=== PATIENT | male | born 2005 | race Caucasian/White ===

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

== ENCOUNTER 2024-06-21 11:04 | Emergency (ER) | payer MEDICAID, SELFPAY ==
[2024-06-21 11:12] VITALS: BP 121/72; PULSE 74; RESP 20; TEMP 36.4; O2SAT 98
[2024-06-21 11:15] VITALS: BP 121/72; PULSE 74; RESP 20; TEMP 36.4; O2SAT 98
--- NOTE | 2024-06-21 11:15 | RT.EKG_ITS ---
APPROVED REPORT Exam: Resting ECG Reason for Exam: dizziness episodes Patient Location: E HR:69 bpm ECG Measurements Heart Rate 69 AXIS TX 131 P 20 QRSd 98 QRS 57 QT 363 T 27 QTc 389 Conclusion Sinus rhythm...normal P axis, V-rate 60- 99 No Occlusion AL
--- NOTE | 2024-06-21 11:33 | ED.GENADUL_ITS ---
Discharge Plan Disposition Patient Disposition: Home Condition: Good Discharge Details Clinical Impression: Chronic intermittent abdominal pain, Dizziness Primary Care Provider: Marylin Carballo ED Provider: Sofya Marroquin Home Meds and New Rx's Prescriptions: No Action No Known Home Meds Discharge Instructions Additional Instructions: Please call the primary care office in [place] to schedule an appointment for further evaluation of your abdominal pain and dizziness episodes. Referral to outpatient specialists may be indicated. Stay well hydrated and eat regular meals throughout the day. Your workup today was reassuring. Return to emergency care if you develop new severely worsening abdominal pain, are unable to hold down foods or fluids, have episodes of passing out, experience new vision changes/confusion, or if you are very worried and need to be rechecked again immediately. HPI General Date/Time Provider Initiated Documentation: 06/21/24 11:06 . HPI Narrative: Emre is a 19 year old male who presents to the ED for evaluation of intermittent sharp LUQ x couple years (since HS) and episodes of intermittent episodes of dizziness ongoing for 3+years. Also reports diarrhea 3-4 times daily, no blood in stool. Abd pain is described as a sharp on-and-off pain in the LUQ that occurs mostly in AM, sometimes at night. No identified aggravating/alleviating factors. Dizziness episodes last only a few seconds, says it feels like he is going to pass out, often accompanied by darkened vision and occasional palpitations; no other associated sx. Denies associated fever/chills, headache, vision changes, chest pains, nausea/vomiting, blood in stool, change in urine output, unusual weight loss. Denies significant PMH. Does not have a PCP, is in process of establishing care at [place]. Denies FMH of celiac disease, crohns, or other known digestive disorders. Daily ETOH use (1 drink, more on weekends), occasional vaping (tobacco), denies marijuana use. Physical exam reassuring. Emre is alert and oriented, in no acute distress. MMM. manager utilization II-XII intact, 5/5 muscle strength to upper and lower extremities, normal Mat, heel-toe walk, Romberg, [id number]. Normal heart sounds. Easy work of breathing, lung sounds clear bilaterally. Abdomen is soft, nondistended, nontender to palpation with normoactive BS. D/dx includes but is not limited to: IBS, IBD, cardiac arrhythmia, electrolyte imbalance, kidney or liver dysfunction, thyroid dysfunction, psychogenic dizziness, dehydration, hypoglycemia. No red flags concerning for acute abdominal process or intracranial pathology requiring emergent diagnostic imaging. I independently interpreted the following tests: EKG reassuring, normal sinus rhythm rate 69, no changes c/w acute ischemia or Brugada syndrome. CBC, CMP, TSH all reassuring. Overall workup today reassuring. Unclear etiology of abdominal discomfort and dizziness episodes, no red flags indicating need for further emergency dept diagnostics at this time in well appearing patient. Recommend further evaluation outpatient with PCP. Reviewed discharge instructions with Emre, including red flags indicating need for return to emergency care and importance of f/u with primary care. He voices agreement with plan of care Related Data Home Medications ?Medication ?Instructions ?Recorded ?Confirmed Unknown [No Known Home Meds] 09/24/22 06/21/24 Allergies Allergy/AdvReac Type Severity Reaction Status Date / Time No Known Allergies Allergy Verified 06/21/24 11:17 General Stated Complaint: Abd Prob ANY: 3 Review of Systems Narrative: see HPI Exam Const General: cooperative, healthy appearing, comfortable, no acute distress and well developed Nutritional Appearance: average body habitus and well nourished Orientation: alert and oriented x3 HENMT Head: normal to inspection Ears: hearing grossly normal bilaterally Face and sinus: normal facial exam Mouth: oral mucosae normal, lip normal, tongue normal, oropharynx normal and moist mucous membranes Eyes Pupils: PERRL EOM: EOM intact bilaterally Resp Effort & Inspection: normal respiratory effort and able to speak in complete sentences Auscultation: clear to auscultation bilaterally Cardio Rate: regular rate Rhythm: regular rhythm GI Inspection: normal to inspection and non-distended Palpation: soft, not firm, no guarding, not rigid and nontender Auscultation: normal bowel sounds Skin General skin exam: no rashes or lesions noted Course Vital Signs Vital signs: Vital Signs Temperature 36.4 C 06/21/24 11:12 Pulse 74 06/21/24 11:12 Respiratory Rate 20 06/21/24 11:12 Blood Pressure 121/72 06/21/24 11:12 Pulse Oximetry 98 06/21/24 11:12 Temperature 36.4 C 06/21/24 11:15 Pulse 74 06/21/24 11:15 Respiratory Rate 20 06/21/24 11:15 Blood Pressure 121/72 06/21/24 11:15 Blood Pressure Position Sitting 06/21/24 11:15 Pulse Oximetry 98 06/21/24 11:15 Oxygen Delivery Method Room Air 06/21/24 11:15 Oxygen Flow Rate 0 06/21/24 11:15 Medical Decision Making Quality:SDOH Health Related Social Needs: No Data to Display PFSH All Active Problems (Updated 06/21/24 @ 12:57 by Sofya Catalan) Dizziness (Acute) Chronic intermittent abdominal pain (Acute) Impacted cerumen of both ears (Acute) Tonsillar hypertrophy (Acute) Excessive cerumen in both ear canals (Acute) Right otitis media (Acute) Otitis externa of both ears (Acute) Left wrist pain (Acute) Acute pain of right knee (Acute) Iliotibial band tendonitis (Acute) Contusion of foot (Acute) Back pain (Acute) Neurocardiogenic syncope (Acute) Medical History No significant past medical history Surgical History No significant past surgical history Family History Mother No problems noted. Father No problems noted. Brother Asthma Other Alcohol abuse MGF Essential hypertension mat great GM Personal history of malignant neoplasm mat great GM-leukemia Hyperlipidemia MGF Social History Smoking/Tobacco Use Status: Current every day Tobacco Type: e-cigarettes and smokeless tobacco Second Hand Exposure: No Smoking risk assessment performed?: Yes Alcohol Intake: current Alcohol Intake frequency: a few times a week Alcohol type: beer and hard liquor Drug use: Occasionally Substance use type: does not use Details: denies current use Adopted: No Foster care: No Housing: house Education Level: high school Details: 9th grade, [employer] Pets and animals: Yes (1 dog) Pets and animals: dog(s) Current gender identity: male What type of physical activity do you participate in: other Details: Soccer Seatbelt use: always Helmet use: Yes Helmet use: always Firearms in home: Yes Firearms unloaded and locked: Yes Do you feel safe at home: Yes Do you feel safe in your relationship?: Yes PAWSS Have you Been Recently Intoxicated or Drunk Within the Last 30 days?: No Have you Ever Experienced Previous Episodes of Alcohol Withdrawal?: No Have you ever Experienced Withdrawal Seizures?: No Have you ever Experienced Delirium Tremens(DT)s?: No Have you ever undergone Alcohol Rehabilitation Treatment (i.e, inpt ot outpatient treatment programs)?: No Have you ever Experienced Blackouts?: No Have you ever Combined Alcohol with other Downers within the last 90 days?: No Have you ever Combined Alcohol with any other Substance of Abuse during the last 90 days?: No Positive Blood Alcohol level on Presentation? [PCS.BAL]: No Evidence of Increased Autonomic Activity (i.e. HR>120, tremor, sweating, agitation, nausea)?: No Result: 0
[2024-06-21 11:53] LABS: Abs Immature Grans 0.01 10^3/uL (0.0-0.06); Absolute Basophil Count 0.04 10^3/uL (0.0-0.2); Absolute Eosinophil Count 0.16 10^3/uL (0.0-0.7); Absolute Lymphocyte Count 1.68 10^3/uL (1.2-3.4); Absolute Monocyte Count 0.42 10^3/uL (0.1-0.8); Basophils % 0.7 %; Eosinophils % 2.9 %; HCT 44.7 % (40.0-50.0); HGB 14.9 g/dL (13.5-17.5); Immature Grans % 0.2 %; Lymphocytes % 29.9 %; MCH 28.1 pg (27.0-33.0); MCHC 33.3 % (32.0-36.0); MCV 84 fL (80-95); MPV 10.5 fL (8.0-11.0); Monocytes % 7.5 %; Neutrophils % 58.8 %; Platelet Count 309 10^3/uL (130-400); RBC 5.31 10^6/uL (4.36-5.78); RDW 12.7 % (11.8-14.1); RDW-SD 38.8 fL; WBC 5.61 10^3/uL (4.4-10.8)
[2024-06-21 12:10] LABS: Lab Add On Test DONE
[2024-06-21 12:17] LABS: ALT 30 U/L (16-63); AST 20 U/L (15-37); Albumin 4.5 g/dL (3.4-5.0); Alkaline Phosphatase 94 U/L (46-116); Anion Gap 7.4 mmol/L (3-11); BUN 9 mg/dL (7-18); Bilirubin, Total 0.8 mg/dL (0.2-1.0); CO2 29.6 mmol/L (21.0-32.0); CREATININE 0.9 mg/dL (0.70-1.30); Calcium 9.5 mg/dL (8.5-10.1); Chloride 103 mmol/L (98-107); Estimated GFR 125.39 (mL/min/1.73m2); Glucose 97 mg/dL (74-106); Lipase 26 U/L (<78); Potassium 4.3 mmol/L (3.5-5.1); Sodium 140 mmol/L (136-145)
[2024-06-21 12:28] LABS: TSH (W/Ref FT4) 0.75 uIU/mL (0.36-3.74)
[2024-06-21 13:10] LABS: Bilirubin Negative (Negative); Blood Negative (Negative); Clarity Clear (Clear); Glucose Negative (Negative); Ketones Negative (Negative); Leukocyte Esterase Negative (Negative); Nitrite Negative (Negative); Urobilinogen 0.2 mg/dL (Up to 0.2)
[2024-06-21 13:46] VITALS: BP 120/64; PULSE 66; RESP 16; TEMP 36.9; O2SAT 100
== END 2024-06-21 13:47 | disposition home or self-care (01) ==
PROVIDERS: Emergency Provider Nurse Practitioner Family; PCP Nurse Practitioner Family
DX: R10.12 Left upper quadrant pain; R42 Dizziness and giddiness
CPT/HCPCS: 36415; 80053; 83690; 93005; 99283; 81003; 84443; 85025; 93010

== ENCOUNTER 2024-08-04 10:10 | Emergency (ER) | payer MEDICAID, SELFPAY ==
--- NOTE | 2024-08-04 10:00 | RT.EKG_ITS ---
APPROVED REPORT Exam: Resting ECG Reason for Exam: Ector, NATALIA Patient Location: E HR:78 bpm ECG Measurements Heart Rate 78 AXIS MO 137 P 73 QRSd 105 QRS 68 QT 367 T 23 QTc 418 Conclusion Sinus rhythm...normal P axis, V-rate 60- 99 Sinus Rhythm. No change from prior 06/21/24. WD
[2024-08-04 10:13] VITALS: BP 112/72; PULSE 80; RESP 18; TEMP 36.9; O2SAT 98
[2024-08-04 11:01] VITALS: BP 112/72; PULSE 71; RESP 22; TEMP 36.7; O2SAT 98
--- NOTE | 2024-08-04 11:52 | W.ED.GENAD ---
Discharge Plan Disposition Patient Disposition: Home Condition: Good Discharge Details Clinical Impression: Intermittent chest pain Primary Care Provider: Marylin Carballo ED Provider: Rosalina Aparicio Home Meds and New Rx's Prescriptions: No Action No Known Home Meds Discharge Instructions Instructions: Chest Pain, Adult ED Additional Instructions: As we discussed your EKG and chest x-ray are reassuring. Your exam is not suggestive of emergent pathology. As the pain does seem to get worse with twisting this could be musculoskeletal. Please continue to monitor your symptoms and try to write these down so you are able to get a better idea of what is causing the pain to come on or migrate. Encourage hydration. Tylenol or ibuprofen as needed for discomfort. If your pain becomes more persistent or you have increased shortness of breath please seek care emergently once again. Otherwise, I have asked our care management team to assist getting you follow-up with primary care in the next 1 to 2 weeks. It does look like you have primary care with [facility], you are welcome to follow up with them as well. Referrals: Marylin Carballo, INFORMATION SYSTEMS ANALYST [Primary Care Provider] - HPI General Date/Time Provider Initiated Documentation: 08/04/24 10:31. Limitations to Documentation: no limitations. Information obtained by: patient and RN notes reviewed. HPI Narrative: HISTORY OF PRESENT ILLNESS The patient is a 19-year-old male presenting with intermittent, localized chest pain for several weeks. The pain is migratory, affecting the lower right side, occasionally higher, and primarily lateral. It lasts about one minute, intensifies during relaxation, and occurs randomly at home and work, 2-3 times daily. He reports difficulty in deep breathing during episode today prompting him to come in, no lightheadedness or dizziness. Mild coughing over the past two days causes throat discomfort but not chest pain. No known cardiac or family history of heart disease. Experienced dyspnea at work today, prompting his visit, non exertional. Pain worsens with twisting movements. This note was created with [email or web address] and created with patient consent. Related Data Home Medications ?Medication ?Instructions ?Recorded ?Confirmed Unknown [No Known Home Meds] 09/24/22 08/04/24 Allergies Allergy/AdvReac Type Severity Reaction Status Date / Time No Known Allergies Allergy Verified 08/04/24 10:12 General Stated Complaint: Chest Pain ANY: 3 Review of Systems Constitutional Constitutional: Reports as per HPI, Denies chills, Denies fever(s) and Denies lethargy Eyes Eyes: Denies change in vision ENT Ears, Nose, Mouth, and Throat: Denies dizziness Cardiovascular Cardiovascular: Reports as per HPI and Denies dyspnea on exertion Respiratory Respiratory: Reports as per HPI, Denies chest congestion, Denies cough, Denies pain on inspiration, Denies pain with cough and Denies dyspnea on exertion Gastrointestinal Gastrointestinal: Reports as per HPI, Denies abdominal pain, Denies diarrhea, Denies nausea and Denies vomiting Musculoskeletal Musculoskeletal: Reports as per HPI and Denies back pain Integumentary/Breasts Skin/Breast: Reports as per HPI and Denies rash Neurologic Neurologic: Reports as per HPI and Denies dizziness Exam Const General: cooperative, healthy appearing, comfortable, no acute distress and well developed Nutritional Appearance: average body habitus and well nourished Orientation: alert, awake and oriented x3 HENMT Head: normal to inspection Ears: hearing grossly normal bilaterally Mouth: moist mucous membranes Chest Chest: normal inspection of the chest, normal palpation of entire chest wall, no crepitus, no localized rib tenderness, no masses and no tenderness Resp Effort & Inspection: normal respiratory effort, able to speak in complete sentences and no respiratory distress Auscultation: clear to auscultation bilaterally, no rales, no rhonchi and no wheezes Cardio Rate: regular rate Rhythm: regular rhythm Heart Sounds: S1 normal and S2 normal Skin General skin exam: no rashes or lesions noted Trauma: no lacerations or abrasions Neuro General: patient alert, patient awake and patient oriented x3 Cognition: normal cognition Speech: speech normal Gait: normal gait Extrem General: normal to inspection, capillary refill normal, no pedal edema, no calf tenderness and normal gait Course Vital Signs Vital signs: Vital Signs Temperature 36.9 C 08/04/24 10:13 Pulse 80 08/04/24 10:13 Respiratory Rate 18 08/04/24 10:13 Blood Pressure 112/72 08/04/24 10:13 Pulse Oximetry 98 08/04/24 10:13 Temperature 36.7 C 08/04/24 11:01 Temperature Source Oral 08/04/24 11:01 Pulse 71 08/04/24 11:01 Pulse Rhythm Regular 08/04/24 11:01 Pulse Strength Normal 08/04/24 11:01 Respiratory Rate 22 08/04/24 11:01 Respiratory Effort Normal, Non-Labored 08/04/24 11:01 Respiratory Depth Normal 08/04/24 11:01 Respiratory Pattern Normal 08/04/24 11:01 Blood Pressure 112/72 08/04/24 11:01 Blood Pressure Mean 85 08/04/24 11:01 Blood Pressure Position Supine 08/04/24 11:01 Pulse Oximetry 98 08/04/24 11:01 Oxygen Delivery Method Room Air 08/04/24 11:01 Oxygen Flow Rate 0 08/04/24 11:01 Pain Level 0 08/04/24 11:01 Medical Decision Making Initial Assessment: Patient presents with intermittent chest pain, migratory in nature, and nonexertional for past few weeks. Pain worsens with twisting and rotating, lasts about a minute, and occurs 2-3 times a day. No history of heart disease or family history of heart disease. No associated symptoms with exertion, no pain with palpation, and normal cardiac and pulmonary exam. ED Course: - EKG evaluated, within normal limits. - Chest x-ray evaluated by radiologist, no acute findings. - Counseled patient on non-emergent nature of symptoms. - Advised patient to keep a journal to better define discomfort. Final Assessment: Intermittent chest pain likely due to non-emergent musculoskeletal etiology given migratory nature and nonexertional symptoms. No need for further evaluation of ACS, pulmonary embolism, aortic pathology, or emergent diagnoses today. Clinical Impression: - Intermittent chest pain - Musculoskeletal etiology Disposition: - Discharge Patient Education: Advised patient to keep a journal to better define discomfort. MDM Components Evaluation: - Number of Differential Diagnoses or Management Options: ACS, pulmonary embolism, aortic pathology, musculoskeletal etiology. - Amount and Complexity of Data Reviewed: EKG, chest x-ray. - Risk of Complication and Morbidity or Mortality: Low risk given normal diagnostic tests and non-emergent nature of symptoms. Quality:SDOH Health Related Social Needs: No Data to Display PFSH All Active Problems (Updated 08/04/24 @ 13:12 by ADITI Kelly) Intermittent chest pain (Acute) Impacted cerumen of both ears (Acute) Tonsillar hypertrophy (Acute) Excessive cerumen in both ear canals (Acute) Right otitis media (Acute) Otitis externa of both ears (Acute) Left wrist pain (Acute) Acute pain of right knee (Acute) Iliotibial band tendonitis (Acute) Contusion of foot (Acute) Back pain (Acute) Neurocardiogenic syncope (Acute) Medical History No significant past medical history Surgical History No significant past surgical history Family History Mother No problems noted. Father No problems noted. Brother Asthma Other Alcohol abuse MGF Essential hypertension mat great GM Personal history of malignant neoplasm mat great GM-leukemia Hyperlipidemia MGF Social History Smoking/Tobacco Use Status: Current every day Tobacco Type: e-cigarettes and smokeless tobacco Second Hand Exposure: No Smoking risk assessment performed?: Yes Alcohol Intake: current Alcohol Intake frequency: a few times a week Alcohol type: beer and hard liquor Drug use: Occasionally Substance use type: does not use Details: denies current use Adopted: No Foster care: No Housing: house Education Level: high [facility] Details[facility] [employer] Pets and animals: Yes (1 dog) Pets and animals: dog(s) Current gender identity: male What type of physical activity do you participate in: other Details: Soccer Seatbelt use: always Helmet use: Yes Helmet use: always Firearms in home: Yes Firearms unloaded and locked: Yes Do you feel safe at home: Yes Do you feel safe in your relationship?: Yes
[2024-08-04 11:57] VITALS: RESP 16
--- NOTE | 2024-08-04 12:00 | DI.RAD_ITS ---
Exam(s) XR CHEST 2V PA LATERAL EXAM: XR CHEST 2V PA LATERAL CLINICAL HISTORY: intermittent CP, SOB TECHNIQUE: 2D digital imaging was performed. Two views. COMPARISON: No exams were available for comparison FINDINGS: HEART: Normal size. Aorta: Not dilated. PULMONARY VASCULATURE: Normal. MEDIASTINUM: Unremarkable. LUNGS: Clear. PLEURAL SPACE: No pleural effusion or pneumothorax. BONE:Unremarkable for age. SOFT TISSUES: Unremarkable. IMPRESSION: No acute abnormality. DATA REPOSITORY: RADIATION DOSE DELIVERED:
== END 2024-08-04 19:02 | disposition home or self-care (01) ==
PROVIDERS: Emergency Provider Physician Assistant; PCP Nurse Practitioner Family
DX: R07.9 Chest pain, unspecified (principal)
CPT/HCPCS: 99283; 99284; 93005; 71046; 93010

== ENCOUNTER 2024-08-09 13:33 | Emergency (ER) | payer MEDICAID, SELFPAY ==
[2024-08-09 13:36] VITALS: BP 118/79; PULSE 74; RESP 16; TEMP 36.8
--- NOTE | 2024-08-09 15:22 | ED.GENADUL_ITS ---
Discharge Plan Disposition Patient Disposition: Home Discharge Details Clinical Impression: Muscle spasm of back, Back pain Primary Care Provider: Marylin Carballo ED Provider: Nick Aguilar Home Meds and New Rx's Prescriptions: New lidocaine [Lidoderm] 5 % adhesive patch,medicated 1 patch topical DAILY Qty: 15 0RF Rx Instructions: leave on most painful area for up to 12 hrs meloxicam 15 mg tablet 15 mg PO DAILY Qty: 14 0RF Rx Instructions: do not take other NSAIDs with this medicine. take with food. methocarbamol 500 mg tablet 500 mg PO TID Qty: 30 0RF No Action No Known Home Meds Discharge Instructions Instructions: Muscle Spasm ED Additional Instructions: You have a spasm on the right side of your back. You can apply heat and stretching and massage to this area to help with this in addition to the medication that was provided. Do some gentle stretching and movement to work it out. If you develop any numbness tingling difficulty with urination or incontinence please return to the emergency department. Stand Alone Forms: Work Release HPI General Date/Time Provider Initiated Documentation: 08/09/24 13:50 . Limitations to Documentation: no limitations . Information obtained by: patient . HPI Narrative: 19-year-old gentleman without significant past medical history presents for evaluation of right-sided back pain. He reports acute onset of pain 3 days ago when he bent over to put something on his bed. He denies any heavy lifting or twisting. He reports feeling a fire ball in his back. This has happened to him before previously. He has not tried any medications for relief. He denies any radiation down his legs, numbness or tingling. Symptoms are worse with any movement. Related Data Home Medications ?Medication ?Instructions ?Recorded ?Confirmed Unknown [No Known Home Meds] 09/24/22 08/09/24 lidocaine 5 % topical patch 1 patch topical DAILY #15 ea 08/09/24 (Lidoderm) meloxicam 15 mg tablet 15 mg PO DAILY #14 tabs 08/09/24 methocarbamol 500 mg tablet 500 mg PO TID #30 tabs 08/09/24 Previous Rx's ?Medication ?Instructions ?Recorded lidocaine 5 % topical patch 1 patch topical DAILY #15 ea 08/09/24 (Lidoderm) meloxicam 15 mg tablet 15 mg PO DAILY #14 tabs 08/09/24 methocarbamol 500 mg tablet 500 mg PO TID #30 tabs 08/09/24 Allergies Allergy/AdvReac Type Severity Reaction Status Date / Time No Known Allergies Allergy Verified 08/09/24 13:38 General Stated Complaint: Nk/Back Pain ANY: 4 Exam Narrative Exam Narrative: Review of Systems: All systems reviewed & are unremarkable except as noted in HPI and below Well-developed, no acute distress NCAT Unlabored respiratory effort No midline back tenderness step-off or deformity, there is a paraspinal spasm on the right mid back no focal neurologic deficits, normal sensation and strength in bilateral lower extremities, gait is normal Course Vital Signs Vital signs: Vital Signs Temperature 36.8 C 08/09/24 13:36 Pulse 74 08/09/24 13:36 Respiratory Rate 16 08/09/24 13:36 Blood Pressure 118/79 08/09/24 13:36 Temperature 36.8 C 08/09/24 13:36 Pulse 74 08/09/24 13:36 Respiratory Rate 16 08/09/24 13:36 Blood Pressure 118/79 08/09/24 13:36 Oxygen Delivery Method Room Air 08/09/24 13:36 Oxygen Flow Rate 0 08/09/24 13:36 Pain Level 6 08/09/24 13:36 Medical Decision Making Emergent evaluation of acute back spasm. Low suspicion for any fracture or or acute neurologic etiology of the symptoms as the patient has a fairly benign exam. He does have a focal spasm. Will treat with anti-inflammatory and pain control. Patient was provided medication in the emergency department in addition to medication prescriptions. Return precautions advised. Home care advised and recommend close follow-up with PCP if symptoms or not improving. Quality:SDOH Health Related Social Needs: No Data to Display PFSH All Active Problems (Updated 08/09/24 @ 15:15 by Nick Aguilar MD) Muscle spasm of back (Acute) Intermittent chest pain (Acute) Impacted cerumen of both ears (Acute) Tonsillar hypertrophy (Acute) Excessive cerumen in both ear canals (Acute) Right otitis media (Acute) Otitis externa of both ears (Acute) Left wrist pain (Acute) Acute pain of right knee (Acute) Iliotibial band tendonitis (Acute) Contusion of foot (Acute) Back pain (Acute) Neurocardiogenic syncope (Acute) Medical History No significant past medical history Surgical History No significant past surgical history Family History Mother No problems noted. Father No problems noted. Brother Asthma Other Alcohol abuse MGF Essential hypertension mat great GM Personal history of malignant neoplasm mat great GM-leukemia Hyperlipidemia MGF Social History Smoking/Tobacco Use Status: Current every day Tobacco Type: e-cigarettes and smokeless tobacco Second Hand Exposure: No Smoking risk assessment performed?: Yes Alcohol Intake: current Alcohol Intake frequency: a few times a week Alcohol type: beer and hard liquor Drug use: Occasionally Substance use type: does not use Details: denies current use Adopted: No Foster care: No Housing: house Education Level: high school Details: 9th grade, [employer] Pets and animals: Yes (1 dog) Pets and animals: dog(s) Current gender identity: male What type of physical activity do you participate in: other Details: Soccer Seatbelt use: always Helmet use: Yes Helmet use: always Firearms in home: Yes Firearms unloaded and locked: Yes Do you feel safe at home: Yes Do you feel safe in your relationship?: Yes
[2024-08-09] MEDS: Lidocaine 5% Patch 1 PATCH TP (16:10)
[2024-08-09] MEDS: Methocarbamol 500 MG TAB 1000 MG PO (16:11)
[2024-08-09] MEDS: Ketorolac 10 MG TAB PO (16:11)
[2024-08-09] MEDS: Acetaminophen 500 MG TAB 1000 MG PO (16:11)
== END 2024-08-09 16:13 | disposition home or self-care (01) ==
PROVIDERS: Emergency Provider Emergency Medicine; PCP Nurse Practitioner Family
DX: M62.830 Muscle spasm of back (principal)
CPT/HCPCS: 99283 ×2